=== PATIENT | male | born 1995 | race Caucasian/White ===

== ENCOUNTER 2019-04-12 11:02 | Emergency (ER) | payer SELFPAY ==
[2019-04-12 11:03] VITALS: BP 155/81; PULSE 93; RESP 18; TEMP 36.6; O2SAT 99; BMI 33.9
--- NOTE | 2019-04-12 11:25 | ED.VISSUMM ---
- ER Visit Summary Date of Service: 04/12/19 Chief Complaint: Laceration History of Present Illness: The patient is a 23 M with a laceration to his right fourth toe. He stepped on a toy. Unsure of his tetanus status. No other associated symptoms or injuries. Physical Examination: 1.5 cm laceration, full-thickness to his right fourth toe, plantar surface. Neurovascular intact distally. Test Results: None indicated Emergency Department Course and Treatment: Area was anesthetized, digital block performed by me. Wound was irrigated and closed with 3 simple interrupted sutures. Tetanus updated. Keflex prophylaxis. Wound care instructions given. Suture instructions given. Follow-up with primary care or return right away if worse. Treatment Plan: As above Disposition: Discharge Impression: 1. Right fourth toe laceration 1.5 cm This note was generated with [employer] dictation software. It may contain incorrect words, spelling, and punctuation that were not noted in review of the chart prior to signing ED Disposition - Plan for ED Patient: Instructions: LACERATION, Foot Prescriptions: Cephalexin [Keflex] 500 mg PO Q6 5 Days #20 cap Prescription Printed Referrals: Susie Brower [NON-STAFF] - 10-14 Days suture removal
[2019-04-12] MEDS: Diphth,Pertuss(Acell),Tet Vac 0.5 ML Vial IM (11:43)
== END 2019-04-12 12:07 | disposition home or self-care (01) ==
LOC: ED 11:29
PROVIDERS: Emergency Provider Emergency Medicine
DX: S91.114A Laceration without foreign body of right lesser toe(s) without damage to nail, initial encounter (principal); W22.8XXA Striking against or struck by other objects, initial encounter; Y93.9 Activity, unspecified; Y92.9 Unspecified place or not applicable; Y99.9 Unspecified external cause status; Z23 Encounter for immunization; K21.9 Gastro-esophageal reflux disease without esophagitis; Z72.0 Tobacco use
CPT/HCPCS: 12001; 90471; 90715; 99283